=== PATIENT | male | born 1990 | race Hispanic/Latino ===

== ENCOUNTER 2016-09-03 16:37 | Emergency (ER) | payer SELFPAY ==
[2016-09-03] MEDS: ACETAMINOPHEN 500 MG TABLET PO ONE (17:01)
--- NOTE | 2016-09-03 19:09 | ERNOTE ---
Medical Problem HPI - Narrative Date of Service: 09/03/16 - General Chief Complaint: General Assessment Time Seen by Provider: 09/03/16 18:52 Source: patient Exam Limitations: no limitations - Immun/Allergies/Home Medications Immunizations: IMMUNIZATION HX History of Influenza Vaccine No Hx Pneumococcal Vaccination No Allergies/Adverse Reactions: Allergies No Known Allergies Allergy (Unverified 09/03/16 16:57) Home Medications: HOME MEDICATIONS Oseltamivir Phosphate [Tamiflu] 75 mg PO BID #10 cap 09/03/16 [Last Taken Unknown] - History of Present History Narrative: Pt. comes in with c/o twelve hour history of fever, rhinorrhea, sinus congestion , sore throat, but pt. has had a cough for a week. Pt. denies SOB, CP, or any other symptoms until today. 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 Review of Systems - Review of Systems Constitutional: Present: fever, weakness, fatigue, malaise. Absent: recent illness, chills EYE: Present: no symptoms reported ENT: Present: nose congestion, nasal drainage, sore throat. Absent: ear pain Respiratory: Present: cough. Absent: shortness of breath, wheezing Cardiology: Present: no symptoms reported. Absent: chest pain, palpitations, edema Gastrointestinal/Abdominal: Present: no symptoms reported. Absent: nausea, vomiting, diarrhea Genitourinary: Present: no symptoms reported Musculoskeletal: Present: no symptoms reported. Absent: back pain, joint pain Skin: Present: no symptoms reported Neurological: Present: headache. Absent: dizziness/light-headedness, numbness, tingling All Other Systems: All systems neg except as marked - Patient's Past Medical History Patient History - Medical: No pertinent hx Patient History - Cancer: No Hx of Cancer Patient History - Surgical Procedures: No surgical history - Social History Smoking Status: Former smoker Have you smoked in the past 12 months: No Do you dip or chew tobacco: No Alcohol Use: rarely Drug Use: none Physical Exam - Physical Exam General Appearance: Present: wd/wn, alert, no apparent distress Eye Exam: Normal inspection: bilateral, PERRL: bilateral, EOMI: bilateral Ears, Nose, Throat: Present: hearing grossly normal, nasal congestion, sinus pain/drainage, pharyngeal erythema, tonsillar exudate - clear. Absent: abnormal TM (R), abnormal TM (L) Neck: Present: normal inspection, nontender. Absent: lymphadenopathy (R), lymphadenopathy (L) Respiratory: Present: no respiratory distress, normal breath sounds, no accessory muscle use, chest nontender, lungs clear Cardiovascular/Chest: Present: regular rate, rhythm, no murmur, normal peripheral pulses Gastrointestinal/Abdominal: Present: normal bowel sounds, nontender, nondistended, soft, no organomegaly, rebound Back Exam: Present: normal inspection, normal range of motion, no CVA tenderness , no vertebral tenderness Extremity Exam: Present: normal inspection, non-tender, no edema, normal range of motion Neurological Exam: Present: alert, oriented, normal mood/affect, no motor/ sensory deficits, 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 Absent: skin rash ED Progress - Results and Orders Patient's Lab Results:: I have reviewed the patient's lab results. Results and Orders: Influenza A positive - Vital Signs Patient's Vital Signs:: I have reviewed the patient's vital signs. Vital Signs: Vital Signs 09/03/16 16:53 Temperature 38.8 C H Pulse Rate 117 H Respiratory 14 Rate Blood Pressure 148/61 O2 Sat by Pulse 96 Oximetry - Progress/Reassessment Chief Complaint: General Assessment Departure - Departure Clinical Impression: Influenza A Disposition: Home self-care Condition: Good Instructions: Influenza, Adult, [id number] Print Language: Egyptian Additional Instructions: Gemini hien markham. Hace un appointmente con tu doctor in 2-3 brock. No trabajando para 24 ahoras despues de no fiebre. Prescriptions: Oseltamivir Phosphate [Tamiflu] 75 mg PO BID #10 cap
[2016-09-03] MEDS ORDERED: OSELTAMIVIR PHOSPHATE 75 MG CAPSULE PO ONE (19:21)
[2016-09-03] MEDS: OSELTAMIVIR PHOSPHATE 75 MG CAPSULE PO ONE (19:23)
[2016-09-03 19:29] VITALS: BP 159/109
== END 2016-09-03 19:49 | disposition home or self-care (01) ==
LOC: ER 16:37
DX: J09.X2 Influenza due to identified novel influenza A virus with other respiratory manifestations (principal); Z87.891 Personal history of nicotine dependence